=== PATIENT | female | born 1990 | race African-American/Black ===

== ENCOUNTER 2016-10-20 17:22 | Emergency (ER) | payer OTHER ==
[~2016-10-20] VITALS: Ht 157.5 cm; Wt 80.0 kg
[~2016-10-20 17:22] MED LIST: FERR-43 PO
[2016-10-20] MEDS ORDERED: PNV1TABL76 PO (17:46)
[2016-10-20] MEDS ORDERED: SODIUM CHLORIDE 0.9% 1,000 ML IV ONE (20:27)
[2016-10-20] MEDS ORDERED: METOCLOPRAMIDE HCL 10MG/2ML VIAL IV ONE (20:45)
[2016-10-20 20:57] LABS: BASOPHILS % 0.3 % (0.0-2.0); DIFFERENTIAL COMMENT 0; EOSINOPHILS % 0.3 % (0.0-5.0); HEMATOCRIT. 29.9 % (36.0-48.0); HEMOGLOBIN. 9.4 g/dL (12.0-16.0); LYMPHOCYTES % 15.8 % (20.0-50.0); MEAN CORPUSCULAR HEMOGLOBIN 23.6 pg (28.0-32.0); MEAN CORPUSCULAR HGB CONC 31.6 g/dL (31.0-37.0); MEAN CORPUSCULAR VOLUME 74.6 fL (81.0-99.0); MEAN PLATELET VOLUME 8.4 fl (7.4-10.4); NEUTROPHILS % 72.6 % (40.0-76.0); PLATELET 198 x1000/uL (130-400); RED BLOOD CELL COUNT 4.01 mill/uL (4.2-5.4); RED CELL DISTRIBUTION WIDTH 15.6 % (11.6-14.6); WHITE BLOOD COUNT 8.6 x1000/uL (4.5-11.0)
[2016-10-20 21:00] LABS: CHLORIDE 105 mEq/L (98-107); INDEX HEMOLYSI 1 (1-3); INDEX ICTERIC 1 (1-4); INDEX LIPEMIC 1 (1-3)
[2016-10-20 21:01] LABS: CALCIUM 8.4 mg/dL (8.5-10.1)
[2016-10-20 21:04] LABS: ANION GAP 15; CARBON DIOXIDE 23 mEq/L (21-32); UREA NITROGEN BLOOD 6 mg/dL (7-21)
[2016-10-20 21:06] LABS: eGFR > 60 mL/min (>60)
[2016-10-20 21:38] LABS: B-HCG QUANTITATIVE 1831 mIU/mL (<3)
[2016-10-20 22:21] LABS: CLARITY URINE CLEAR (CLEAR); COLOR URINE YELLOW (YELLOW); GLUCOSE URINE NEGATIVE (NEGATIVE); KETONES URINE 4+ (NEGATIVE); LEUKOCYTE ESTERASE URINE 1+ (NEGATIVE); NITRITE URINE POSITIVE (NEGATIVE); OCCULT BLOOD URINE NEGATIVE (NEGATIVE); PH URINE 6.5 (4.5-8.0); PROTEIN URINE NEGATIVE (NEGATIVE); SPECIFIC GRAVITY URINE 1.019 (1.005-1.030)
[2016-10-20 22:35] LABS: *AMPHETAMINES SCREEN URINE NEGATIVE (NEGATIVE); *BARBITURATES SCREEN URINE NEGATIVE (NEGATIVE); *BENZODIAZEPINES SCREEN URINE NEGATIVE (NEGATIVE); *COCAINE SCREEN URINE NEGATIVE (NEGATIVE); CANNABINOID URINE SCREEN NEGATIVE (NEGATIVE); ECSTASY MDMA SCREEN URINE NEGATIVE (NEGATIVE); METHADONE URINE SCREEN NEGATIVE (NEGATIVE); OPIATES URINE SCREEN NEGATIVE (NEGATIVE); PHENCYCLIDINE URINE SCREEN NEGATIVE (NEGATIVE)
[2016-10-20 22:37] LABS: BACTERIA URINE 3+; MUCUS URINE TRACE /lpf (< = 2+); SQUAMOUS EPITHELIAL CELL URINE FEW /lpf (RARE/1+)
[2016-10-20 23:03] VITALS: BP 112/64
== END 2016-10-21 05:17 | disposition home or self-care (01) ==
LOC: ER 17:23
DX: O26.893 Other specified pregnancy related conditions, third trimester (principal); O23.43 Unspecified infection of urinary tract in pregnancy, third trimester; K21.9 Gastro-esophageal reflux disease without esophagitis; Z3A.28 28 weeks gestation of pregnancy
CPT/HCPCS: 36415; 76805; 80048; 80305; 81001; 82962; 84702; 85025; 86850; 86900; 86901; 96361; 96374; 99285; J2765; J7030; Z7610